=== PATIENT | male | born 1965 | race Caucasian/White ===

== ENCOUNTER 2021-01-27 17:21 | Emergency (ER) | payer OTHER ==
[~2021-01-27] VITALS: Ht 180.3 cm; Wt 80.0 kg
[2021-01-27] MEDS ORDERED: NEOMY/BACITR/POLYMYXIN OINT PACKET. TP ONE ×2 (17:45→18:11)
[2021-01-27] MEDS ORDERED: LIDOCAINE 2%/EPI 1:100,000 20 ML VIAL. IJ ONE (17:45)
[2021-01-27] MEDS ORDERED: LIDOCAINE 2%/EPI 1:100,000 20 ML VIAL. ONE (17:46)
[2021-01-27 17:51] VITALS: BP 146/88
--- NOTE | 2021-01-27 18:01 | PHYS DOC ---
Past History Past Medical History: Diabetes, Heart Disease, Hypertension Past Surgical History: Coronary Bypass Surgery Additional Past Surgical Histo: Lasik Smoking: Non-smoker Alcohol Use: None Drug Use: None General Adult EDM: Chief Complaint: LACERATION/AVULSION HPI: HPI: Patient is a 55 year old male who presents for a wound to his right thumb from slicing it on a mandoline slicer an hour ago. He states he is not having very much pain but that his right thumb is now numb. He rates his pain at a 3/10 in intensity. Pt states the wound has been consistently bleeding since the incident. He denies any shortness of breath, dizziness, loss of consciousness, nausea, or vomiting. He otherwise has no complaints. Review of Systems: Review of Systems: Constitutional: Denies fever or chills Respiratory: Denies cough or shortness of breath Cardiovascular: Denies chest pain or palpitations Integument: Reports wound to right thumb, bleeding from wound Neurologic: Reports numbness of right thumb, Denies headache Complete systems were reviewed and found to be within normal limits, except as documented in this note. Current Medications: Current Meds: Current Medications Medications (Trade) Dose Ordered Sig/Adrien Start Time Stop Time Status Last Admin Dose Admin Lidocaine/ Epinephrine (Xylocaine 2%-Epi 1:100,000) 20 ml 1X ONCE 01/27/21 17:45 01/27/21 17:46 UNV Neomycin/ Polymyxin/ Bacitracin (Triple Antibiotic Ointment) 1 pkt 1X ONCE 01/27/21 17:45 01/27/21 17:46 UNV Physical Exam: PE: Constitutional: Well developed, well nourished, no acute distress, non-toxic appearance HENT: Normocephalic, atraumatic Eyes: Conjunctiva normal, no discharge Neck: Normal range of motion, supple Lungs & Thorax: No respiratory distress, equal chest rise and fall Skin: 3cm avulsion to lateral portion of right thumb, moderate bleeding from avulsion Extremities: Tenderness of right thumb avulsion (see above), no edema Neurologic: Decreased sensation to palpation on right thumb, Alert and oriented X 3, normal motor function Psychologic: Affect normal, judgment normal EKG: EKG: [] Radiology/Procedures: Radiology/Procedures: [] Heart Score: C/O Chest Pain: N/A Course & Med Decision Making: Course & Med Decision Making Patient presented for avulsion to right thumb from being sliced on a mandoline. Avulsion has constant moderate bleeding from wound site. Unable to repair secondary to skin avulsion. Rinsed out wound and coagulated with cautery. Patient stable for discharge with outpatient follow-up with PCP. Discussed findings and plan with patient, who acknowledges understanding and agreement. Roz Disclaimer: Dragon Disclaimer: This electronic medical record was generated, in whole or in part, using a voice recognition dictation system. Departure Departure: Impression: Primary Impression: Avulsion of skin of finger Qualified Codes: S61.209A - Unspecified open wound of unspecified finger without damage to nail, initial encounter Disposition: HOME / SELF CARE / HOMELESS Condition: STABLE Referrals: PCP,NO (PCP) Patient Instructions: Deep Skin Avulsion Additional Instructions: Do not soak your wound. You may shower. Clean wound daily with soap and water. Change dressing 2 times daily. Use over the counter antibiotic ointment with each dressing change. ANDREW ANDERS DO Jan 27, 2021 18:01
== END 2021-01-27 18:28 | disposition home or self-care (01) ==
LOC: ER 17:21
DX: S61.001A Unspecified open wound of right thumb without damage to nail, initial encounter (principal); E11.9 Type 2 diabetes mellitus without complications; I10 Essential (primary) hypertension; X58.XXXA Exposure to other specified factors, initial encounter; Y93.89 Activity, other specified; Y92.89 Other specified places as the place of occurrence of the external cause; Y99.8 Other external cause status
CPT/HCPCS: 99283-25

== ENCOUNTER 2021-01-30 15:21 | Emergency (ER) | payer OTHER ==
[~2021-01-30] VITALS: Ht 180.3 cm; Wt 80.0 kg
[2021-01-30 15:33] VITALS: BP 138/65
[2021-01-30] MEDS ORDERED: COCAINE 4% TOPICAL SOLUTION. TP ONE (16:00)
--- NOTE | 2021-01-30 16:18 | PHYS DOC ---
Past History Past Medical History: Diabetes, Heart Disease, Hypertension Additional Past Medical Histor: bypass (ISIDORO ORTIZ APRN) Past Surgical History: Coronary Bypass Surgery Additional Past Surgical Histo: Lasik (ISIDORO ORTIZ APRN) Smoking: Non-smoker Alcohol Use: None Drug Use: None (ISIDORO ORTIZ APRN) General Adult EDM: Chief Complaint: LACERATION/AVULSION HPI: HPI: Patient is a 55-year-old male presents with avulsion to right thumb. Patient was treated in the ER on and had avulsion cauterized. Patient states when he changes the bandage bill of motion starts to bleed again. Patient reports holding pressure to the area prior to coming in but could not get it to quit bleeding. (ISIDORO ORTIZ APRN) Review of Systems: Review of Systems: ROS At least 10 ROS systems have been reviewed and are negative except as documented in the HPI. General: Negative except as outlined in HPI above. Skin: Negative except as outlined in HPI above. HEENT: Negative except as outlined in HPI above. Neck: Negative except as outlined in HPI above. Respiratory: Negative except as outlined in HPI above.. Cardiovascular: Negative except as outlined in HPI above. Abdomen: Negative except as outlined in HPI above. : Negative except as outlined in HPI above. Back/MSK: Negative except as outlined in HPI above. Neuro: Negative except as outlined in HPI above. Psych: Negative except as outlined in HPI above. (ISIDORO ORTIZ APRN) Current Medications: Current Meds: Current Medications Medications (Trade) Dose Ordered Sig/Adrien Start Time Stop Time Status Last Admin Dose Admin Cocaine HCl (Cocaine 4% Topical) 4 ml 1X ONCE 01/30/21 16:00 01/30/21 16:01 UNV 01/30/21 16:00 4 ML (ISIDORO ORTIZ APRN) Allergies: Allergies: Allergies Coded Allergies Type Severity Reaction Last Updated Verified No Known Drug Allergies 01/27/21 No (ISIDORO ORTIZ APRN) Physical Exam: PE: Constitutional: Well developed, well nourished, no acute distress, non-toxic appearance. [] HENT: Normocephalic, atraumatic, bilateral external ears normal, oropharynx moist, no oral exudates, nose normal. [] Eyes: PERRLA, EOMI, conjunctiva normal, no discharge. [] Neck: Normal range of motion, no tenderness, supple, no stridor. [] Cardiovascular:Heart rate regular rhythm, no murmur [] Lungs & Thorax: Bilateral breath sounds clear to auscultation [] Abdomen: Bowel sounds normal, soft, no tenderness, no masses, no pulsatile masses. [] Skin: 3 cm avulsion to the right thumb, light bleeding Back: No tenderness, no CVA tenderness. [] Extremities: No tenderness, no cyanosis, no clubbing, ROM intact, no edema. [] Neurologic: Alert and oriented X 3, normal motor function, normal sensory function, no focal deficits noted. [] Psychologic: Affect normal, judgement normal, mood normal. [] (ISIDORO ORTIZ APRN) Current Patient Data: Vital Signs: Vital Signs Date Time Temp Pulse Resp B/P (MAP) Pulse Ox O2 Delivery O2 Flow Rate FiO2 01/30/21 15:33 98.2 82 16 138/65 (89) 97 (ISIDORO ORTIZ APRN) EKG: EKG: [] (ISIDORO ORTIZ APRN) Radiology/Procedures: Radiology/Procedures: [] (ISIDORO ORTIZ APRN) Heart Score: C/O Chest Pain: No Risk Factors: Risk Factors: DM, Current or recent (<one month) smoker, HTN, HLP, family history of CAD, obesity. Risk Scores: Score 0 - 3: 2.5% MACE over next 6 weeks - Discharge Home Score 4 - 6: 20.3% MACE over next 6 weeks - Admit for Clinical Observation Score 7 - 10: 72.7% MACE over next 6 weeks - Early Invasive Strategies (ISIDORO ORTIZ APRN) Course & Med Decision Making: Course & Med Decision Making Pertinent Labs and Imaging studies reviewed. (See chart for details) [] 55-year-old male presents with avulsion to right thumb. Patient was seen on and had avulsion cauterized but has started bleeding again. Soaked gauze in cocaine and applied pressure for 15 minutes. (ISIDORO ORTIZ APRN) Dragon Disclaimer: Dragon Disclaimer: This electronic medical record was generated, in whole or in part, using a voice recognition dictation system. (ISIDORO ORTIZ APRN) Attending Co-Sign The patient was seen and interviewed as well as examined at the bedside. The chart was reviewed. The case was discussed. Agree with the plan of care. (AKASH OROZCO DO) Departure Departure: Impression: Primary Impression: Skin avulsion Disposition: 01 HOME / SELF CARE / HOMELESS Condition: STABLE Referrals: PCP,KARINA (PCP) Patient Instructions: Deep Skin Avulsion Additional Instructions: Continue using nonadherent dressing over wound along with Neosporin. If it starts bleeding please hold pressure. Return to emergency room with worsening symptoms or concerns. EMERGENCY DEPARTMENT GENERAL DISCHARGE INSTRUCTIONS Thank you for coming to [facility] (ED) today and trusting us with you care. We trust that you had a positivie experience in our Emergency Department. If you wish to speak to the department management, you may call the director at [phone]. YOUR FOLLOW UP INSTRUCTIONS ARE FOLLOWS: 1. Do you have a private Doctor? If you do not have a private doctor, please ask for a resource list of physicians or clinics that may be able to assist you with follow up care. 2. The Emergency Physician has interpreted your x-rays. The X-Ray specialist will also review them. If there is a change in the findings, you will be notified in 48 hours when at all possible. 3. A lab test or culture has been done, your results will be reviewed and you will be notified if you need a change in treatment. ADDITIONAL INSTRUCTIONS AND INFORMATION: 1. Your care today has been supervised by a physician who is specially trained in emergency care. Many problems require more than one evaluation for a complete diagnosis and treatment. We recommend that you schedule your follow up appointment as recommended to ensure complete treatment of you illness or injury. If you are unable to obtain follow up care and continue to have a problem, or if your condition worsens, we recommend that you return to the ED. 2. We are not able to safely determine your condition over the phone nor are we able to give sound medical advice over the phone. For these safety reasons, if you call for medical advice we will ask you to come to the ED for further evaluation. 3. If you have any questions regarding these discharge instructions please call the ED at [phone]. SAFETY INFORMATION: In the interest of safety, wellness, and injury prevention; we encourage you to wear your sealbelt, if you smoke; quite smoking, and we encourage family to use a protective helmet for bicycling and other sporting events that present an increased risk for head injury. IF YOUR SYMPTOMS WORSEN OR NEW SYMPTOMS DEVELOP, OR YOU HAVE CONCERNS ABOUT YOUR CONDITION; OR IF YOUR CONDITION WORSENS WHILE YOU ARE WAITING FOR YOUR FOLLOW UP APPOINTMENT; EITHER CONTACT YOUR PRIMARY CARE DOCTOR, THE PHYSICIAN WHOSE NAME AND NUMBER YOU WERE GIVEN, OR RETURN TO THE ED IMMEDIATELY. ISIDORO ORTIZ APRN Jan 30, 2021 16:18 AKASH OROZCO DO Jan 31, 2021 16:04
[2021-01-30] MEDS ORDERED: SILVER NITRATE STICK TP ONE (16:45)
== END 2021-01-30 17:01 | disposition home or self-care (01) ==
LOC: ER 15:21
DX: S61.101A Unspecified open wound of right thumb with damage to nail, initial encounter (principal); E11.9 Type 2 diabetes mellitus without complications; I11.9 Hypertensive heart disease without heart failure; Z95.1 Presence of aortocoronary bypass graft; X58.XXXA Exposure to other specified factors, initial encounter; Y93.89 Activity, other specified; Y92.89 Other specified places as the place of occurrence of the external cause; Y99.8 Other external cause status
CPT/HCPCS: 99283